=== PATIENT | male | born 1995 | race Hispanic/Latino ===

== ENCOUNTER 2023-09-14 20:06 | Inpatient (IN) | payer SELFPAY ==
[~2023-09-14] VITALS: Ht 172.7 cm; Wt 58.0 kg
[2023-09-14] VITALS (8 sets, daily range): BP systolic 116–137; BP diastolic 79–99
--- NOTE | 2023-09-14 20:12 | NUR ---
PT TO RM #2 VIA W/C, TRIAGE COMPLETE, NAD NOTED, NOTIFIED OF PT.
[2023-09-14] MEDS ORDERED: LACTATED RINGER S IR ONE (20:25)
[2023-09-14] MEDS ORDERED: LORazepam 2 MG/ML IV ONE (20:25)
[2023-09-14] MEDS ORDERED: METOCLOPRAMIDE HCL 10 MG/2 ML SDV IV ONE (20:25)
[2023-09-14] MEDS ORDERED: MORPHINE SULFATE 4 MG/ML VIAL IV ONE (20:25)
[2023-09-14] MEDS ORDERED: ONDANSETRON HCl 4 MG/2 ML SDV IV ONE (20:25)
[2023-09-14] MEDS ORDERED: DiphenhydrAMINE HCL 50 MG/ML SDV IV ONE (20:25)
[2023-09-14] MEDS ORDERED: LACTATED RINGER'S 1,000 ML IV ONE ×3 (20:35→23:55)
[2023-09-14 20:38] LABS: BASO% 0.2 % (0-3); HEMATOCRIT 49.6 % (39.0-50.0); HEMOGLOBIN 17.7 g/dl (14.0-18.0); IMMATURE GRANULOCYTES 0.2 % (0.0-5.0); LYMPH% 2.1 % (15-41); MEAN CORPUSCULAR HGB 32.1 pG CALC (26.0-32.0); MEAN CORPUSCULAR HGB CONC 35.7 g/dL CAL (32.0-36.0); MONO% 2.5 % (2-13); NEUT# 19.23 thou/uL (1.82-7.42); RED BLOOD COUNT 5.51 mill/uL (4.70-6.10); RED CELL DISTRI WIDTH 11.4 % (11.5-15.5)
[2023-09-14 20:49] LABS: ALKALINE PHOSPHATASE 95 u/l (38-126); ANION GAP 27 (6-22 (CALC)); BILIRUBIN, TOTAL 1.6 mg/dL (0.2-1.3); BUN 32 mg/dL (9-20); BUN/CREATININE RATIO 8 (12-20 (CALC)); CARBON DIOXIDE 22 mmol/l (22-30); CHLORIDE 94 mmol/l (95-108); CREATININE 3.8 mg/dL (0.7-1.3); ESTIMATED GFR 21 ML/MIN (>=90 (CALC)); LIPASE 66 u/l (23-300); POTASSIUM 4.8 mmol/l (3.5-5.1); SGOT/AST 75 u/l (17-59); SODIUM 138 mmol/l (137-146)
[2023-09-14 20:56] LABS: ALBUMIN > 6.0 g/dL (3.2-5.0); TOTAL PROTEIN 10.9 g/dL (6.3-8.2)
--- NOTE | 2023-09-14 21:20 | NUR ---
PT IN BED RESTING, NO DISTRESS NOTED AT THIS TIME. PT BEING HYDRATED WITH FLUIDS AND INFORMED THAT URINE SAMPLE WAS NEEDED AND TO NOTIFY NURSE WHEN HE NEEDS TO VOID. PT VERBALIZED UNDERSTANDING OF INSTRUCTIONS. VITAL SIGNS STABLE AT THIS TIME.
--- NOTE | 2023-09-14 22:13 | NUR ---
PT LAYING IN BED RESTING, NO DISTRESS NOTED AT THIS TIME. VITAL SIGNS STABLE.
[2023-09-14] MEDS ORDERED: PIPERACILLIN Sodium-Tazobactam 3.375 GM in SODIUM CHLORIDE 0.9% 100 ML IV ONE (22:45)
[2023-09-14 22:52] LABS: URINE BLOOD DIPSTICK Moderate (NEGATIVE); URINE COLOR Dark yellow; URINE GLUCOSE - DIPSTICK Negative (NEGATIVE); URINE KETONE Negative (NEGATIVE); URINE LEUK ESTERASE Negative (NEGATIVE); URINE NITRITE - DIPSTICK Negative (Negative); URINE PH 5.5 (4.5-8.0); URINE PROTEIN - DIPSTICK 100 mg/dL (NEG-TRACE); URINE SPECIFIC GRAVITY >=1.030; URINE UROBILINOGEN - DIPSTICK 0.2 E.U./dL (0.2)
[2023-09-14 22:58] LABS: URINE BACTERIA FEW hpf; URINE WBC 0-2 WBC/hpf (0-5)
[2023-09-14 22:59] LABS: URINE HYALINE CAST MODERATE lpf (NONE-RARE)
[2023-09-14 23:23] LABS: BASO% 0.1 % (0-3); HEMATOCRIT 44.2 % (39.0-50.0); IMMATURE GRANULOCYTES 0.2 % (0.0-5.0); LYMPH% 2.8 % (15-41); MEAN CELL VOLUME 91.1 fL CALC (80.0-100.0); MEAN CORPUSCULAR HGB 32.2 pG CALC (26.0-32.0); MEAN CORPUSCULAR HGB CONC 35.3 g/dL CAL (32.0-36.0); MONO% 2.8 % (2-13); NEUT# 16.64 thou/uL (1.82-7.42); NEUT% 94.1 % (42-76); RED BLOOD COUNT 4.85 mill/uL (4.70-6.10); RED CELL DISTRI WIDTH 11.6 % (11.5-15.5)
[2023-09-14 23:30] LABS: HEMOGLOBIN 15.6 g/dl (14.0-18.0)
--- NOTE | 2023-09-14 23:53 | NUR ---
PT CARE REPORT GIVEN TO [facility]
[2023-09-14] MEDS ORDERED: MAGNESIUM HYDROXIDE 30 ML UDC PO PRN (23:55)
[2023-09-14] MEDS ORDERED: ONDANSETRON HCl 4 MG/2 ML SDV IV PRN (23:55)
[2023-09-15] VITALS (11 sets, daily range): BP systolic 94–119; BP diastolic 52–81
[2023-09-15] MEDS ORDERED: ACETAMINOPHEN 325 MG/TAB PO SCH
--- NOTE | 2023-09-15 00:05 | NUR ---
PT TRANSPORTED TO [facility] ROOM 272
--- NOTE | 2023-09-15 01:20 | NUR ---
PATIENT ARRIVED IN WHEELCHAIR FROM ER, AMBULATED SELF TO BED, ALERT AND ORIENTATED X4. ASSESSMENT COMPLETED. PUPILS 3MM. BRETH SOUNDS CLEAR, NONLABORD. EQUAL CHEST RISES. NO ABDOMINAL PAIN OR DISTENSION NOTED WHEN INSPECTED. EQUAL STRENGTH IN ALL EXTREMITIES. PERIPHERAL PULSES STRONG AND EQUAL. SKIN IS WARM AND DRY. PATIENT IS KOREAN SPEAKING, FAMILY AT BEDSIDE TO INTERPRET, PATIENT IS ABLE TO MAKE NEEDS KNOWN, BED AT LOWEST POSITION, CALL LIGHT WITH IN REACH.
--- NOTE | 2023-09-15 04:30 | NUR ---
patient in bed asleep with eyes closed . responds to verbal stimuli and able to make needs known. no visual signs of distress. bed in lowest position, call light with in reach.
[2023-09-15] MEDS ORDERED: SODIUM CHLORIDE 0.9% 1,000 ML IV PRN (06:40)
--- NOTE | 2023-09-15 07:15 | NUR ---
REPORT RECEIVED FROM ORIN STYLES
--- NOTE | 2023-09-15 09:03 | NUR ---
AT BEDSIDE DISCUSSING POC WITH PT.
[2023-09-15 09:36] LABS: BASO% 0.5 % (0-3); EOS% 0.1 % (0-8); HEMATOCRIT 40.6 % (39.0-50.0); HEMOGLOBIN 14.1 g/dl (14.0-18.0); IMMATURE GRANULOCYTES 0.1 % (0.0-5.0); LYMPH% 11.7 % (15-41); MEAN CELL VOLUME 91.9 fL CALC (80.0-100.0); MEAN CORPUSCULAR HGB 31.9 pG CALC (26.0-32.0); MEAN CORPUSCULAR HGB CONC 34.7 g/dL CAL (32.0-36.0); MONO% 10.1 % (2-13); NEUT# 10.41 thou/uL (1.82-7.42); NEUT% 77.5 % (42-76); RED BLOOD COUNT 4.42 mill/uL (4.70-6.10); RED CELL DISTRI WIDTH 11.6 % (11.5-15.5)
--- NOTE | 2023-09-15 10:00 | NUR ---
PT RESTING IN SEMI FOWLERS POSITION WITH SIGNIFICANT OTHER AT BEDSIDE, PT IS FILIP[place] SPEAKING ONLY BUT SIGNIFICANT OTHER IS FLUENT IN TAIWANESE. BECKY MARSH NIGHTSHIFT NURSE ALSO TRANSLATED DURING REPORT;ASSESSMENT COMPLETED;PT DENIES ANY CURRENT PAIN OR DISCOMFORTS,PAIN SCALE AND REPORTING EDUCATED;RESPIRATIONS EVEN AND UNLABORED ON RA,CLEAR LUNG SOUNDS;ABDOMEN SOFT ON PALPATION AND ACTIVE IN ALL 4 QUADRANTS;STRONG PEDAL PULSES;SKIN INTACT;#18G TO RAC INFUSING NS @ 125ML/HR PER ORDER;PT DENIES ANY ADDITIONAL NEEDS AND IS ENCOURAGED TO CALL FOR ASSISTANCE IF NEEDED;FALL PRECAUTIONS REMAIN IN PLACE WITH BED IN THE LOWEST POSITION AND CALL LIGHT IN REACH;FREQUENT ROUNDS MADE.
[2023-09-15 10:15] LABS: ALBUMIN 4.6 g/dL (3.2-5.0); BILIRUBIN, TOTAL 1.7 mg/dL (0.2-1.3); CREATININE 1.7 mg/dL (0.7-1.3); POTASSIUM 3.7 mmol/l (3.5-5.1); TOTAL PROTEIN 7.4 g/dL (6.3-8.2)
--- NOTE | 2023-09-15 10:26 | NUR ---
PT PLACED ON TELE #5 PER ORDER.
--- NOTE | 2023-09-15 11:35 | NUR ---
PT RESTING IN SEMI FOWLERS POSITION WITH VISITORS AT BEDSIDE;RESPIRATIONS REMAIN EVEN AND UNLABORED ON RA;PT DENIES ANY CURRENT PAIN OR DISCOMFORTS;TELE MONITORING IN PLACE;IV FLUIDS INFUSING WITH EASE TO RAC;ENCOURAGED TO CALL FOR ASSISTANCE IF NEEDED;CALL LIGHT IN REACH;FREQUENT ROUNDS MADE.
[2023-09-15] MEDS ORDERED: ACETAMINOPHEN 325 MG/TAB PO PRN (14:00)
--- NOTE | 2023-09-15 15:50 | NUR ---
PT RESTING IN SEMI FOWLERS POSITION;RESPIRATIONS EVEN AND UNLABORED ON RA;PT DENIES ANY CURRENT PAIN OR DISCOMFORTS;TELE MONITORING IN PLACE;#18G TO RAC CONTINUES TO INFUSE WITH EASE PER ORDER;PT DENIES ANY ADDITIONAL NEEDS AND IS ENCOURAGED TO CALL FOR ASSISTANCE IF NEEDED;CALL LIGHT IN REACH;FREQUENT ROUNDS MADE.
--- NOTE | 2023-09-15 20:00 | NUR ---
REPORT RECIEVED FROM [facility] NURSE. PT RESTING IN BED WATCHING TELEVISION. PT IS A&O X3, AND ABLE TO MAKE NEEDS KNOWN. NO S&S OF DISTRESS NOTED AT THIS TIME. PT STATES THAT HIS LAST BM WAS THIS MORNING. SKIN INTACT. PT REMAINS ON TELE AT THIS TIME. UPPER AND LOWER LOBES CLEAR UPON AUSCULTATION OF LUNG SOUNDS. BOWEL SOUNDS ACTIVE X4 QUADRANTS. PERIPHERAL PULSES STRONG. PT HAS A 18 IN THE (R) AC, WITH CONTINIOUS INFUSION GOING. NO NAUSEA/VOMITING/DIARRHEA AT THIS TIME. PT EDUCATED ON MEDICATION SCHEDULE, AND POC. CALL LIGHT IN REACH, AND SAFETY PRECAUTIONS IN PLACE.
--- NOTE | 2023-09-16 00:15 | NUR ---
PT RESTING IN BED WITH EYES CLOSED. RESPIRATIONS ARE EVEN AND UNLABORED. PT IS EASILY AROUSABLE. NO S&S OF DISTRESS NOTED AT THIS TIME. CALL LIGHT IN REACH, AND SAFETY PRECAUTIONS IN PLACE.
[2023-09-16 04:11] VITALS: BP 100/50
--- NOTE | 2023-09-16 04:15 | NUR ---
LAB AT BEDSIDE, NO COMPLAINTS VOICED FROM PT AT THIS TIME. PT DOES NOT SHOW ANY S&S OF DISTRESS AT THIS TIME. FLUIDS OFFERED AND ENCOURAGED. CALL LIGHT IN REACH, AND SAFETY PRECAUTIONS IN PLACE.
[2023-09-16 05:44] LABS: BASO% 0.6 % (0-3); EOS% 0.8 % (0-8); HEMATOCRIT 38.7 % (39.0-50.0); HEMOGLOBIN 13.3 g/dl (14.0-18.0); IMMATURE GRANULOCYTES 0.2 % (0.0-5.0); LYMPH% 27.5 % (15-41); MEAN CELL VOLUME 95.8 fL CALC (80.0-100.0); MEAN CORPUSCULAR HGB 32.9 pG CALC (26.0-32.0); MEAN CORPUSCULAR HGB CONC 34.4 g/dL CAL (32.0-36.0); NEUT# 3.94 thou/uL (1.82-7.42); NEUT% 61.9 % (42-76); RED BLOOD COUNT 4.04 mill/uL (4.70-6.10); RED CELL DISTRI WIDTH 11.6 % (11.5-15.5)
[2023-09-16 06:11] LABS: ALBUMIN 3.6 g/dL (3.2-5.0); CREATININE 1.3 mg/dL (0.7-1.3); MAGNESIUM 2.1 mg/dL (1.6-2.3); POTASSIUM 4.2 mmol/l (3.5-5.1); TOTAL PROTEIN 6.1 g/dL (6.3-8.2)
[2023-09-16 07:19] VITALS: BP 108/62
--- NOTE | 2023-09-16 07:49 | NUR ---
Pt resting in bed, completing ADLs. Although pt speaks primarily [place], pt odes understand pain, nausea, poop. Communication is effective. Will continue to montior.
[2023-09-16 10:28] VITALS: BP 113/75
--- NOTE | 2023-09-16 12:27 | NUR ---
Discharge instructions given. Patient verbalizes understanding of same. Discharged in good condition via Wheelchair to Home with family. All belongings sent with pt.
== END 2023-09-16 12:16 | disposition home or self-care (01) | DRG 923 ==
LOC: ED 20:06 → ED-I 20:59 → ED 20:59 → ED-I 22:53 → ED 23:11 → MS2 23:12
PROVIDERS: Emergency Medicine; Nurse Practitioner Family; ADMIT Internal Medicine; ATTEND Internal Medicine
DX: T67.5XXA Heat exhaustion, unspecified, initial encounter (principal); N17.9 Acute kidney failure, unspecified; E87.20 Acidosis, unspecified; E86.0 Dehydration; D72.829 Elevated white blood cell count, unspecified; X30.XXXA Exposure to excessive natural heat, initial encounter; Y93.H3 Activity, building and construction; Y99.0 Civilian activity done for income or pay
CPT/HCPCS: J2060